=== PATIENT | male | born 1995 | race Caucasian/White ===

== ENCOUNTER 2017-06-28 01:28 | Emergency (ER) | payer MEDICAID ==
--- NOTE | 2017-06-28 01:47 | EDPHY ---
H & P Stated Complaint: EOTH and fell out and of [place]. abrasion on face. Time Seen by Provider: 06/28/17 01:44 HPI/ROS: HPI CHIEF COMPLAINT: Alcohol intoxication, fall, head injury HISTORY OF PRESENT ILLNESS: This patient is a 22-year-old male, he is visiting [place] from [facility], he presents emergency room with 2 friends by private vehicle. His friends received a phone call that he fell. Unclear exactly what happened this was unwitnessed. But he has significant abrasions to his right maxillary cheek. Patient does not know what happened as he comes into the emergency room highly intoxicated with alcohol. His friends report that he had multiple beers multiple shots of liquor tonight. Only visible trauma on exam is abrasions to the right maxillary region. Past Medical History: Denies significant medical history Past Surgical History: No significant surgical history Social History: From [facility], here visiting for the weekend. Family History: Noncontributory ROS REVIEW OF SYSTEMS: A comprehensive 10 point review of systems is otherwise negative aside from elements mentioned in the history of present illness. Exam Constitutional intoxicated, smells of alcohol, slurring speech, triage nursing summary reviewed, vital signs reviewed, awake/alert. Eyes normal conjunctivae and sclera, EOMI, PERRLA. HENT head/neck: Right maxillary region shows abrasions present, no laceration, soft tissue swelling is present, otherwise atraumatic head and neck exam, midface stable, moist mucus membranes, no epistaxis, neck supple/ no meningismus , no raccoon eyes. Respiratory clear to auscultation bilaterally, normal breath sounds, no respiratory distress, no wheezing. Cardiovascular rate normal, regular rhythm, no murmur, no edema, distal pulses normal. Gastrointestinal soft, non-tender, no rebound, no guarding, normal bowel sounds, no distension, no pulsatile mass. Genitourinary no CVA tenderness. Musculoskeletal no midline vertebral tenderness, full range of motion, no calf swelling, no tenderness of extremities, no meningismus, good pulses, neurovascularly intact. Skin pink, warm, & dry, no rash, skin atraumatic. Neurologic intoxicated, slurring speech awake, alert and oriented x 3, AAOx3, moves all 4 extremities equally, motor intact, sensory intact, CN II-XII intact , Psychiatric normal mood/affect. Heme/Lymph/Immune no lymphadenopathy. Differential Diagnosis: Includes but is not limited to in a particular order acute alcohol intoxication, closed head injury, intracranial bleed, soft tissue swelling, facial fractures, facial contusion. Medical Decision Making: Plan for this patient CT head and CT cervical spine for trauma given the setting of alcohol intoxication and obvious facial trauma. Unknown what happened. Additionally chest x-ray. Re-evaluate. Re-evaluation: Breath alcohol 372. 0315: CT scan head and neck are negative for acute traumatic injury. ED x-ray chest one view: Negative for acute cardiopulmonary disease. 0358: Patient is sleeping. Sobering from his alcohol. Once sober will re- evaluate and most likely discharge. 0418: Patient ambulated with a stable gait. Much more sober now. His imaging is unremarkable for acute trauma. Friends at bedside would like to take him home. Source: Patient, Other - Personal History Current Tetanus/Diphtheria Vaccine: Unsure Current Tetanus Diphtheria and Acellular Pertussis (TDAP): Unsure - Medical/Surgical History Other PMH: Unk - Social History Smoking Status: Unknown if ever smoked Constitutional: Initial Vital Signs Temperature (C) 36.7 C 06/28/17 01:32 Heart Rate 98 06/28/17 01:32 Respiratory Rate 16 06/28/17 01:32 Blood Pressure 129/86 H 06/28/17 01:32 O2 Sat (%) 98 06/28/17 01:32 O2 Delivery Mode Room Air Allergies/Adverse Reactions: Unable to Assess Allergy (Unverified 06/28/17 01:31) Home Medications: Medication Instructions Recorded Unobtainable 06/28/17 Departure - Departure Disposition: Home, Routine, Self-Care Clinical Impression: Facial abrasion Qualifiers: Encounter type: initial encounter Qualified Code(s): S00.81XA - Abrasion of other part of head, initial encounter Alcohol intoxication Qualifiers: Complication of substance-induced condition: uncomplicated Qualified Code(s): F10.920 - Alcohol use, unspecified with intoxication, uncomplicated Condition: Good Instructions: Alcohol Intoxication (ED), Abuse of Alcohol (ED) Referrals: NONE *PRIMARY CARE P,. [Primary Care Provider] - As per Instructions
[2017-06-28 04:31] VITALS: BP 110/64; PULSE 84; RESP 18; TEMP 97.9; O2SAT 94
== END 2017-06-28 04:32 | disposition home or self-care (01) ==
DX: S00.81XA Abrasion of other part of head, initial encounter (principal); F10.920 Alcohol use, unspecified with intoxication, uncomplicated; W18.39XA Other fall on same level, initial encounter; Y99.8 Other external cause status; Y93.89 Activity, other specified